=== PATIENT | male | born 1990 | race Caucasian/White ===

== ENCOUNTER 2016-10-20 17:28 | Inpatient (IN) | payer MEDICAID, OTHER ==
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
[2016-10-20 18:26] LABS: % IMMATURE GRANULYOCYTES 0.4 % (0.0-1.1); ABSOLUTE IMMATURE GRANULOCYTES 0.04 10^3/uL (0.00-0.10); ADD DIFF? NO; ADD MORPH? NO; ADD SCAN? NO; ATYPICAL LYMPHOCYTE FLAG 0 (0-99); FRAGMENT RBC FLAG 0 (0-99); HEMATOCRIT 45.8 % (40.0-51.0); HEMOGLOBIN 15.5 g/dL (13.7-17.5); LEFT SHIFT FLG 0 (0-99); LIPEMIA HEMOLYSIS FLAG 90 (0-99); MEAN CELL HEMOGLOBIN 30.1 pg (27.9-34.1); MEAN CELL HEMOGLOBIN CONCENTR. 33.8 g/dL (32.4-36.7); MEAN CELL VOLUME 88.9 fL (81.5-99.8); MEAN PLATELET VOLUME 10.1 fL (8.7-11.7); PLATELET CLUMPS FLAG 0 (0-99); PLATELET COUNT 212 10^3/uL (150-400); RED BLOOD CELL COUNT 5.15 10^6/uL (4.40-6.38); RED CELL DISTRIBUTION WIDTH 12.4 % (11.5-15.2)
[2016-10-20 18:40] LABS: ANION GAP 13 mEq/L (8-16); CALCIUM 9.6 mg/dL (8.5-10.4); CARBON DIOXIDE 23 mEq/l (22-31); CHLORIDE 108 mEq/L (97-110); CREATININE 0.8 mg/dL (0.7-1.3); ETHANOL SERUM < 10 mg/dL (0-10); GLOMERULAR FILTRATION RATE > 60; GLUCOSE 84 mg/dL (70-100); POTASSIUM 4.3 mEq/L (3.5-5.2); SALICYLATE < 1.0 mg/dL (2.0-20.0); SODIUM 144 mEq/L (134-144)
[2016-10-21] MEDS ORDERED: CHLORDIAZEPOXIDE 25MG PREPK#6 BTL TAKEHOME ONE (07:15)
[2016-10-22] MEDS ORDERED: ACETAMINOPHEN 325 MG TAB PO PRN (15:15)
[2016-10-22] MEDS ORDERED: ONDANSETRON 4 MG/2 ML VIAL IVP PRN (15:15)
[2016-10-22] MEDS ORDERED: ONDANSETRON DISINTEGRATING 4 MG TAB PO PRN (15:15)
[2016-10-22] MEDS ORDERED: NICOTINE 21 MG/24 HR PATCH TD PRN (16:27)
[2016-10-22] MEDS ORDERED: NICOTINE POLACRILEX 2 MG GUM B PRN (16:27)
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
[2016-10-22] MEDS ORDERED: LURASIDONE HCL 80 MG TAB PO SCH (17:00)
[2016-10-23] MEDS: ENOXAPARIN 40 MG/0.4 ML SYR SC SCH (09:28)
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
[2016-10-24] MEDS: ENOXAPARIN 40 MG/0.4 ML SYR SC SCH (11:06)
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
[2016-10-25] MEDS: ENOXAPARIN 40 MG/0.4 ML SYR SC SCH (10:59)
[2016-10-26] MEDS: ENOXAPARIN 40 MG/0.4 ML SYR SC SCH (08:32)
--- NOTE | 2016-10-26 20:01 | HOSPPROG ---
Hospitalist Progress Note Assessment/Plan: #Acute agitation: resolved. #Unclear psych disorder: was evaluated by [facility]. Not suicidal. Not on outpatient meds. Will try to discuss meds with [facility] team #Cerebral palsy: PT/OT #Diet: regular #DVT ppx: Lovenox #Disp: warrants inpt admission for placement; case management. Subjective: no acute event Objective: Vital Signs Temp Pulse Resp BP Pulse Ox 36.9 C 61 12 108/59 L 93 10/26/16 15:25 10/26/16 15:25 10/26/16 15:25 10/26/16 15:25 10/26/16 15:25 10/25/16 10/26/16 10/27/16 05:59 05:59 05:59 Intake Total 500 500 Output Total 1275 550 150 Balance -775 -50 -150 - Physical Exam Constitutional: no apparent distress Eyes: PERRL Ears, Nose, Mouth, Throat: moist mucous membranes Cardiovascular: regular rate and rhythym Respiratory: no respiratory distress Gastrointestinal: normoactive bowel sounds, soft, non-tender abdomen Genitourinary: no bladder fullness Skin: warm Neurologic: AAOx3 Psychiatric: depressed (no SI/HI), flat affect ICD10 Worksheet Patient Problems: Problems Problem Status Onset Cerebral palsy Acute Scoliosis Acute
[2016-10-27] MEDS: ENOXAPARIN 40 MG/0.4 ML SYR SC SCH (10:11)
--- NOTE | 2016-10-27 14:39 | HOSPPROG ---
Hospitalist Progress Note Assessment/Plan: #Acute agitation: resolved. #Unclear psych disorder: was evaluated by [facility]. Not suicidal. Not currently on outpatient meds #Cerebral palsy: he is refusing PT #Diet: regular #DVT ppx: Lovenox #Disp: warrants inpt admission for placement; case management assisting Subjective: no complaints Objective: Vital Signs Temp Pulse Resp BP Pulse Ox 37.0 C 55 L 16 93/50 L 90 L 10/26/16 23:15 10/27/16 08:00 10/27/16 08:00 10/27/16 08:00 10/27/16 08:00 10/26/16 10/27/16 10/28/16 05:59 05:59 05:59 Intake Total 500 500 Output Total 550 500 Balance -50 0 - Physical Exam Constitutional: no apparent distress Eyes: PERRL Ears, Nose, Mouth, Throat: moist mucous membranes Cardiovascular: regular rate and rhythym Respiratory: no respiratory distress, no rales or rhonchi Gastrointestinal: normoactive bowel sounds Genitourinary: no bladder fullness Skin: warm Musculoskeletal: full muscle strength Neurologic: AAOx3 Psychiatric: flat affect ICD10 Worksheet Patient Problems: Problems Problem Status Onset Cerebral palsy Acute Scoliosis Acute
[2016-10-27 16:00] LABS: HEMATOCRIT 44.5 % (40.0-51.0); HEMOGLOBIN 15.2 g/dL (13.7-17.5); MEAN CELL HEMOGLOBIN 29.9 pg (27.9-34.1); MEAN CELL HEMOGLOBIN CONCENTR. 34.2 g/dL (32.4-36.7); MEAN CELL VOLUME 87.6 fL (81.5-99.8); RED BLOOD CELL COUNT 5.08 10^6/uL (4.40-6.38); RED CELL DISTRIBUTION WIDTH 12.2 % (11.5-15.2)
[2016-10-27 16:26] LABS: ANION GAP 11 mEq/L (8-16); CALCIUM 9.4 mg/dL (8.5-10.4); CARBON DIOXIDE 23 mEq/l (22-31); CHLORIDE 106 mEq/L (97-110); CREATININE 0.7 mg/dL (0.7-1.3); GLOMERULAR FILTRATION RATE > 60; GLUCOSE 100 mg/dL (70-100); POTASSIUM 3.7 mEq/L (3.5-5.2); SODIUM 140 mEq/L (134-144)
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
[2016-10-28] MEDS: ENOXAPARIN 40 MG/0.4 ML SYR SC SCH (09:54)
[2016-10-29] MEDS: ENOXAPARIN 40 MG/0.4 ML SYR SC SCH (08:55)
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
[2016-10-30] MEDS: ENOXAPARIN 40 MG/0.4 ML SYR SC SCH (11:02)
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
[2016-10-31] MEDS: ENOXAPARIN 40 MG/0.4 ML SYR SC SCH (11:49)
[2016-11-01] MEDS: ENOXAPARIN 40 MG/0.4 ML SYR SC SCH (09:21)
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
[2016-11-02] MEDS: ENOXAPARIN 40 MG/0.4 ML SYR SC SCH (09:28)
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
[2016-11-03] MEDS: ENOXAPARIN 40 MG/0.4 ML SYR SC SCH (09:51)
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
[2016-11-04] MEDS: ENOXAPARIN 40 MG/0.4 ML SYR SC SCH (10:40)
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
[2016-11-05] MEDS: ENOXAPARIN 40 MG/0.4 ML SYR SC SCH (09:25)
--- NOTE | 2016-11-05 11:40 | PDIAF ---
- Diagnosis Diagnosis: agitation Code Status: Full Code - Medication Management Discharge Medications: Medications to Continue on Transfer Acetaminophen [Tylenol 325mg (*)] 650 mg PO Q4HRS PRN #0 tab 11/05/16 [Last Taken Unknown] Nicotine Polacrilex [Nicorette gum (*)] 2 mg B PRN PRN #0 gum 11/05/16 [Last Taken Unknown] Nicotine [Nicoderm Cq 21 mg (*)] 21 mg TD DAILY PRN #0 patch 11/05/16 [Last Taken Unknown] Discharge Medications: Refer to the Discharge Home Medication list for PRN reason. PICC Care - Routine: N/A - Orders Services needed: Registered Nurse, [employer], Physical Therapy, Occupational Therapy Diet Recommendation: no restrictions on diet - Follow Up Care Current Providers and Referrals: NONE *PRIMARY CARE P,. [Primary Care Provider] - As per Instructions
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
[2016-11-05 22:25] VITALS: PULSE 61
[2016-11-06 00:08] VITALS: BP 115/59; RESP 13; TEMP 98.3; O2SAT 96
--- NOTE | 2016-11-06 20:20 | GDS ---
[f rep st] DISCHARGE SUMMARY DISCHARGE DIAGNOSES: Include: 1. Acute agitation/psychiatric decompensation. 2. Chronic cerebral palsy. HISTORY OF PRESENT ILLNESS: A 26-year-old male who is brought to the emergency department with acut e agitation. He is a resident at [facility] in [place], [place]. For details of patient's init ial presentation, please see the history and physical dated 10/23/2016. CONSULTATIONS: Include Psychiatry. PROCEDURES: None. HOSPITAL COURSE: By issue: 1. Acute agitation: Presumed underlying psychiatric disorder. The patient was not acutely suicida l but was actively hallucinating. He was monitored closely at [facility] and treated with both Risperdal a nd Zyprexa. Patient is being transferred to inpatient Psychiatry for ongoing psychiatric care. 2. Chronic cerebral palsy: Patient was refusing therapies during his inpatient stay. Will be disc harged with supportive care only. 3. Tobacco abuse: Patient was discharged nicotine gum. MEDICATIONS AT THE TIME OF TRANSFER: Please reference med rec printed on 11/06/2016. PENDING STUDIES: At time of this dictation, none. FOLLOWUP APPOINTMENTS: Include inpatient Psychiatry on transfer. /[id number]/MODL
== END 2016-11-06 10:25 | DRG 880 ==
LOC: F3N 10-22 15:41 → OBSVTOIN 10-23 11:58 → F3E 10-27 15:29 → F2N 11-05 23:51
PROVIDERS: ADMIT Internal Medicine; ATTEND Hospitalist
DX: F99 Mental disorder, not otherwise specified (principal); R45.1 Restlessness and agitation; R44.3 Hallucinations, unspecified; G80.9 Cerebral palsy, unspecified; F12.20 Cannabis dependence, uncomplicated; F17.210 Nicotine dependence, cigarettes, uncomplicated; M41.9 Scoliosis, unspecified; Z59.0 Homelessness; Z81.8 Family history of other mental and behavioral disorders
CPT/HCPCS: 80305; 97162-GP; 97166-GO; 97530-GO; 97530-GP; 97535-GO; G0378; G0480; J1650

== ENCOUNTER 2016-11-06 10:44 | Inpatient (IN) | payer MEDICAID, OTHER ==
[2016-11-06] MEDS ORDERED: NICOTINE POLACRILEX 2 MG GUM B PRN (12:25)
[2016-11-06] MEDS ORDERED: MAG HYDROX/AL HYDROX/SIMETH 30 ML UDCUP PO PRN (12:25)
[2016-11-06] MEDS ORDERED: OLANZapine DISINTEGR 10 MG TAB PO PRN (12:25)
[2016-11-06] MEDS ORDERED: LORazepam 0.5 MG TAB PO PRN (12:25)
[2016-11-06] MEDS ORDERED: MAGNESIUM HYDROXIDE 30 ML UDCUP PO PRN (12:25)
[2016-11-06] MEDS ORDERED: ACETAMINOPHEN 325 MG TAB PO PRN (12:25)
[2016-11-06] MEDS ORDERED: OLANZapine DISINTEGR 5 MG TAB PO PRN (12:43)
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
[2016-11-06] MEDS: RISPERIDONE 1 MG ODT TAB SL SCH (21:26)
--- NOTE | 2016-11-07 12:38 | SOAPPROG ---
SOAP Progress Note Assessment/Plan: Assessment: 11/07/16 12:29 Plan: 1. Patient refuses all psych meds. He only wants to take "medical marijuana." 2. Will try to obtain collateral records from [facility] and from family in [place]. Patient reports "depression" as adolescent, was on meds but thought they "made it worse." No prior hx of psychotic disorder noted. Suspect low IQ in addition to cerebral palsy. This is addition to heavy and prolonged THC use is likely what has led to paranoia, delusions and disorganized thought process. 3. Will need placement in SNF d/t cerebral palsy. Unclear whether he can return to [facility]. Family may want him placed in facility closer to them in [place]. Subjective: Met with patient and discussed with staff. He refused PO Risperdal last night. Patient is rolling in wheelchair down [place]. MD asks to talk to him and he is pleasant and calm. He has delayed speech and a speech impediment d/t cerebral palsy and possible speech disorder as well. Patient says he moved [place] to [place] to "have a better life for me and my daughter." When MD asks where his daughter is now, he says, "in the waiting room." He says he suffered with depression "as a teenager" and took meds, but didn't like them b/c they "made things worse." He denies ever making a suicide attempt, but says he "thought about it." He denies ever being hospitalized. He denies taking meds at [facility], even though Latuda was listed as an outpatient med when he was in ED. He denies ever experiencing hallucinations except when using drugs. At one point, patient asks , "Have you had a phone call from someone in [facility]?" MD asks patient why he brought that up, patient repeats his question. When MD says "no" patient says, "well that's probably a subliminal message, but you're probably telling the truth." MD asks patient if he would be willing to try medication to help with his thoughts, but he says, "I'm not going to take any meds, I don't need them." And he repeats he only wants marijuana. He does ask for assistance getting "transferred" to another SNF. He denies any SI/HI. Objective: Vital Signs Temp Pulse Resp BP Pulse Ox 36.5 C 59 L 14 99/52 L 92 11/07/16 06:36 11/07/16 06:36 11/07/16 06:36 11/07/16 06:36 11/07/16 06:36 MSE: Wearing green [facility] gown, hair is wet so likely has taken a shower, calm , pleasant. Affect: Euthymic Mood: "OK" TP: Linear and logical except when asks about contacts with "[facility] in [facility]" TC: Denies any AH/VH, but has paranoid delusions, denies any SI/HI Insight/Judgment: Poor - Time Spent With Patient Time Spent With Patient: 25" - Pending Discharge Pending Discharge Within 24 Hours: No ICD10 Worksheet Patient Problems: Problems Problem Status Onset Cannabis use disorder, severe, dependence Acute Psychosis Acute Cerebral palsy Acute Scoliosis Acute - ICD10 Problem Qualifiers (1) Psychosis Qualifiers: Psychosis type: unspecified psychosis type Schizoaffective disorder type: S Schizophrenia type: S Qualified Code(s): F29 - Unspecified psychosis not due to a substance or known physiological condition (2) Cannabis use disorder, severe, dependence
[2016-11-07] MEDS ORDERED: MELATONIN 3 MG TAB PO PRN (12:41)
[2016-11-07] MEDS: RISPERIDONE 1 MG ODT TAB SL SCH (20:34)
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
[2016-11-08] MEDS: RISPERIDONE 1 MG ODT TAB SL SCH (20:18)
--- NOTE | 2016-11-09 13:56 | SOAPPROG ---
SOAP Progress Note Assessment/Plan: Assessment: 1. Cerbral Palsy 2. Schizophrenia Ordering risperidone 1 mg HS Collect collateral information Work on placement issues Plan: Collateral information Continue Risperdal [facility] for dangerousness and Grave Disability Consider petition for COM 11/09/16 13:56 Subjective: "I'm tired of doing it." "Urgently as possible." "I have a request for medical marijuana." Tried to see patient this AM, but he was in bed and did not interact in a meaningful manner. This PM he is awake, but irritable with me. His requests are for marijuana and placement to an LTC facility. He does not want to return to [facility]. He does not want to talk much. When I ask him to tell me his story h tells me, "They have certified correct documentation." Objective: Vital Signs Temp Pulse Resp BP Pulse Ox 36.4 C 84 14 106/57 L 94 11/08/16 06:00 11/08/16 06:00 11/08/16 06:00 11/08/16 06:00 11/08/16 06:00 Medications Generic Name Dose Route Start Last Admin Trade Name Freq PRN Reason Stop Dose Admin Risperidone 1 mg 11/06/16 21:00 11/08/16 20:18 Risperdal-M SL 05/05/17 20:59 Not Given HS LAM MSE Up and in wheelchair. Wearing a hospital gown. Speech is pressured but not rapid. Mood/Affect are incongruent. Self report of mood is normal but Mr. Harris is quite irritable today. Denies internal stimuli and does not appear to respond to internal stimuli. Lacks insight and judgment. ICD10 Worksheet Patient Problems: Problems Problem Status Onset Cannabis use disorder, severe, dependence Acute Psychosis Acute Cerebral palsy Acute Scoliosis Acute
[2016-11-09] MEDS: RISPERIDONE 1 MG ODT TAB SL SCH (21:17)
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
[2016-11-10] MEDS: risperiDONE 1 MG TAB PO SCH ×2 (20:01→20:03)
[2016-11-11] MEDS ORDERED: LORazepam 2 MG/ML INJ IM PRN (11:09)
[2016-11-11] MEDS ORDERED: LORazepam 1 MG TAB PO PRN ×2 (11:09→11:18)
[2016-11-11] MEDS ORDERED: OLANZapine 10 MG/2 ML VIAL IM PRN (11:09)
[2016-11-11] MEDS ORDERED: OLANZapine DISINTEGR 10 MG TAB PO SCH ×2 (11:15→21:00)
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
[2016-11-11] MEDS: OLANZapine DISINTEGR 10 MG TAB PO SCH ×2 (11:59→20:48)
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
[2016-11-12] MEDS: OLANZapine DISINTEGR 10 MG TAB PO SCH (10:04)
--- NOTE | 2016-11-12 13:41 | SOAPPROG ---
SOAP Progress Note Assessment/Plan: Assessment: 1. Cerbral Palsy 2. Schizophrenia Continued irritability, anger, profanity, and aggression today. Significant sedation with olanzapine 10 mg, try 5 mg HS. Plan: He is verbally aggressive, yelling, profane and threatening today. ReStarting Emergency [employer]. COM petition done (dictation [id number]) [facility] for dangerousness and Grave Disability done. 11/12/16 13:43 Subjective: "What is it?" "What is the whole situation?" "What is the issue on my case?" Uncooperative, yelling and profane. Angry and unable to participate in any conversation. Received Emergency medications yesterday. Will renew today. Mr. Harris remains irritable and imminently dangerous. Mr. Harris was very sedated by 10 mg olanzapine, will try a lower dose at HS only today. Objective: Vital Signs Temp Pulse Resp BP Pulse Ox 36.4 C 60 13 104/53 L 94 11/12/16 08:33 11/12/16 08:33 11/12/16 08:33 11/12/16 08:33 11/12/16 08:33 Medications Generic Name Dose Route Start Last Admin Trade Name Freq PRN Reason Stop Dose Admin Olanzapine 10 mg 11/11/16 11:45 11/12/16 10:04 Zyprexa Zydis PO 05/10/17 11:44 Not Given BID LAM MSE Awake, poor grooming, hair unkempt and dirty, wearing hospital gown only. Appears angry, yelling, cursing, balled fists and thrusting of hands. Declines to discuss his mood. Appears to respond to internal stimuli at times. Lacks insight and judgment. ICD10 Worksheet Patient Problems: Problems Problem Status Onset Cannabis use disorder, severe, dependence Acute Psychosis Acute Cerebral palsy Acute Scoliosis Acute
[2016-11-12] MEDS ORDERED: OLANZapine 10 MG/2 ML VIAL IM PRN (13:45)
[2016-11-12] MEDS ORDERED: LORazepam 0.5 MG TAB PO PRN (13:47)
[2016-11-12] MEDS ORDERED: OLANZapine DISINTEGR 5 MG TAB PO SCH (21:00)
[2016-11-13] MEDS ORDERED: LORazepam 0.5 MG TAB PO PRN (01:21)
[2016-11-13] MEDS ORDERED: LORazepam 2 MG/ML INJ IM PRN ×2 (01:21→15:11)
[2016-11-13] MEDS ORDERED: LORazepam 1 MG TAB PO PRN (11:00)
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
[2016-11-13] MEDS ORDERED: OLANZapine 10 MG/2 ML VIAL IM PRN (15:08)
[2016-11-13] MEDS ORDERED: MELATONIN 3 MG TAB PO PRN (15:12)
[2016-11-13] MEDS ORDERED: OLANZapine DISINTEGR 5 MG TAB PO SCH (21:00)
[2016-11-14] MEDS: OLANZapine DISINTEGR 5 MG TAB PO SCH (20:31)
--- NOTE | 2016-11-15 12:12 | SOAPPROG ---
SOAP Progress Note Assessment/Plan: Assessment: 1. Cerbral Palsy 2. Schizophrenia Continued irritability, anger, and aggression today. Less profanity. Continue olanzapine 5 mg HS. Plan: STC and COM petition done. Taking olanzapine 5 mg QHS. Will continue and consider increasing in 2.5 mg increments. 11/15/16 12:12 Subjective: "Are you stupid?" "I'm doing fine." "Did you get the word. Did you get the notification." Slept 5 hours plus. Has significant sleep phase delay. Mr. Harris is requesting placement at a LTC facility. This appears to be his only concern. He wants to make sure he can use his "medical marijuana" wherever he lives. Objective: Vital Signs Temp Pulse Resp BP Pulse Ox 36.4 C 60 13 104/53 L 94 11/12/16 08:33 11/12/16 08:33 11/12/16 08:33 11/12/16 08:33 11/12/16 08:33 Medications Generic Name Dose Route Start Last Admin Trade Name Mikeyq PRN Reason Stop Dose Admin Olanzapine 5 mg 11/14/16 21:00 11/14/16 20:31 Zyprexa Zydis PO 05/13/17 20:59 5 mg HS LAM MSE Awake, alert, hair unwashed, in wheelchair, malodorous uncooperative and unpleasant with me today. Not forthcoming about thoughts or mood state. Speech is pressured, loud, and profane. Lacks insight. Lacks judgment. ICD10 Worksheet Patient Problems: Problems Problem Status Onset Cannabis use disorder, severe, dependence Acute Psychosis Acute Cerebral palsy Acute Scoliosis Acute
[2016-11-15] MEDS: OLANZapine DISINTEGR 5 MG TAB PO SCH (19:34)
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
--- NOTE | 2016-11-16 10:42 | SOAPPROG ---
SOAP Progress Note Assessment/Plan: Assessment: 1. Cerbral Palsy 2. Schizophrenia Decreased irritability, decreased lability. Slowly improving. Continue olanzapine 5 mg HS. Plan: STC and COM petition done. Taking olanzapine 5 mg QHS. Will continue and consider increasing in 2.5 mg increments. PT evaluation to use a Walker. 11/16/16 10:48 Subjective: "I'm anxious about the case." Mr. Harris slept 5.5 hours last night per nursing report. He is up earlier today than yesterday. He tells me his energy is good today. He requests placement at an LTC where he can smoke marijuana. I recommend he attend groups and cooperate with the nursing staff so we can give a good report to the LTC facilities. His care rep is making applications. I also understand that Mr Harris uses a Walker at his LTC facility. I have entered a request for PT to evaluate and see if he can use a walker here as well. Objective: Vital Signs Temp Pulse Resp BP Pulse Ox 36.4 C 60 13 104/53 L 94 11/12/16 08:33 11/12/16 08:33 11/12/16 08:33 11/12/16 08:33 11/12/16 08:33 Medications Generic Name Dose Route Start Last Admin Trade Name Freq PRN Reason Stop Dose Admin Olanzapine 5 mg 11/14/16 21:00 11/15/16 19:34 Zyprexa Zydis PO 05/13/17 20:59 5 mg HS LAM MSE: Awake, alert, grooming better today. Hair is washed and combed. Not malodorous, more appropriately dressed. Minimally cooperative with interview, but no yelling nor cursing today. Mood normal with congruent affect, reasonable range of affect Thought processes more linear and simple. Only topic of conversations for him are medical marijuana and LTC placement. Lacks insight. Lacks judgment. ICD10 Worksheet Patient Problems: Problems Problem Status Onset Cannabis use disorder, severe, dependence Acute Psychosis Acute Cerebral palsy Acute Scoliosis Acute
[2016-11-16] MEDS: OLANZapine DISINTEGR 5 MG TAB PO SCH (19:21)
--- NOTE | 2016-11-17 13:48 | SOAPPROG ---
SOAP Progress Note Assessment/Plan: Assessment: 1. Cerbral Palsy 2. Schizophrenia Decreased irritability, decreased lability. Slowly improving. Increase olanzapine to 7.5 mg HS. Plan: STC and COM petition done. Taking olanzapine 5 mg QHS. Increase olanzapine to 7.5 mg HS. PT evaluation to use a Walker. 11/17/16 13:52 Subjective: "Do you want an audience to clap?" "Every day here is mental and emotional exhaustion." "Can you treat it as an urgent situation?" Slept 6.5 hours last night. Irritable with me today. Seeking discharge to an LTC , but we have not found a placement for him. Asks about going to a Skilled Nursing today. There are few shelters open in the summer. Staff report Mr. Harris continues to appear to respond to internal stimuli at times. Objective: Vital Signs Temp Pulse Resp BP Pulse Ox 36.8 C 87 15 118/82 H 91 L 11/17/16 06:00 11/17/16 06:00 11/17/16 06:00 11/17/16 06:00 11/17/16 06:00 Medications Generic Name Dose Route Start Last Admin Trade Name Freq PRN Reason Stop Dose Admin Olanzapine 5 mg 11/14/16 21:00 11/16/16 19:21 Zyprexa Zydis PO 05/13/17 20:59 5 mg HS LAM MSE Up in wheelchair. Hair clean. Grooming fair Speech comes out in pressured, irritable bursts. Thought processes simple and disorganized. Does not want to discuss anything except placement. Thought content reveals paranoia about medications. Lacks insight/judgment. ICD10 Worksheet Patient Problems: Problems Problem Status Onset Cannabis use disorder, severe, dependence Acute Psychosis Acute Cerebral palsy Acute Scoliosis Acute
[2016-11-17] MEDS: OLANZapine DISINTEGR 5 MG TAB PO SCH (20:27)
[2016-11-18] MEDS ORDERED: TUBERCULIN (PPD) 5 TU/0.1 ML SYRINGE ID ONE (11:55)
--- NOTE | 2016-11-18 14:26 | BLETTER ---
November 18, 2016 RE: Prescription for wheelchair. To Whom It May Concern: Mr. Srini Harris, has cerebral palsy. Because of his cerebral palsy, he has poor coordination and is unable to walk. He is confined to a wheelchair , and we are requesting a wheelchair for him. Respectfully yours, LUCITA
--- NOTE | 2016-11-18 15:05 | SOAPPROG ---
SOAP Progress Note Assessment/Plan: Assessment: 1. Cerbral Palsy Can not use a walker without leg/ankle braces. Rx and letter done ordering wheelchair. 2. Schizophrenia Decreased irritability, decreased lability. Slowly improving. Continue olanzapine to 7.5 mg HS. Plan: STC and COM petition done. 11/18/16 15:06 Subjective: "I already accomplished that." Reports sleep was fine. More cooperative, but still has an irritable edge with me. buildings and grounds coordinator has learned that Mr. Harris has some services through his family' s [employer]. They will try to access these services. We are ordering a wheelchair. Denies medication side effects. Objective: Vital Signs Temp Pulse Resp BP Pulse Ox 36.8 C 87 15 118/82 H 91 L 11/17/16 06:00 11/17/16 06:00 11/17/16 06:00 11/17/16 06:00 11/17/16 06:00 Medications Generic Name Dose Route Start Last Admin Trade Name Freq PRN Reason Stop Dose Admin Olanzapine 7.5 mg 11/17/16 13:53 11/17/16 20:27 Zyprexa Zydis PO 05/13/17 20:59 7.5 mg HS LAM MSE Awake, alert, minimally cooperative with me presents with an irritable affect, but not yelling, not cursing, appears to be improving [place] thoughts, thought processes linear, does not appear to respond to internal stimuli today lacks insight, lacks judgment ICD10 Worksheet Patient Problems: Problems Problem Status Onset Cannabis use disorder, severe, dependence Acute Psychosis Acute Cerebral palsy Acute Scoliosis Acute
[2016-11-18] MEDS: OLANZapine DISINTEGR 5 MG TAB PO SCH (18:53)
[2016-11-19] MEDS ORDERED: OLANZapine 10 MG/2 ML VIAL IM PRN ×2 (10:46)
[2016-11-19] MEDS ORDERED: OLANZapine DISINTEGR 10 MG TAB PO PRN (10:46)
--- NOTE | 2016-11-19 10:53 | SOAPPROG ---
SOAP Progress Note Assessment/Plan: Assessment: 1. Cerbral Palsy Can not use a walker without leg/ankle braces. Rx and letter done ordering wheelchair. 2. Schizophrenia Increased irritability and aggressiveness today which appears to be secondary to an increase of paranoia, though Mr. Harris is not forthcoming during interview today. Plan: Emergency medications today for dangerousness to others. olanzapine 5 mg prn and [address] [facility] and COM petition done. 11/19/16 10:56 Subjective: "What's the real situation?" "What, are you ill?" "What do you need, sir?" Slept 8 hours per records last night. With me Mr. Harris is loud, yelling, profane, and accusatory. He appears to have some paranoia about talking to me today but can not say what is wrong. He took a shower today, with help from staff. I saw him after his shower and he became paranoid, seeming to think there is some underlying or "real situation." However he will not explain what he means by this. I ask, and he begins yelling and becomes aggressive and profane. Objective: Vital Signs Temp Pulse Resp BP Pulse Ox 36.8 C 87 15 118/82 H 91 L 11/17/16 06:00 11/17/16 06:00 11/17/16 06:00 11/17/16 06:00 11/17/16 06:00 Medications Discontinued Medications Generic Name Dose Route Start Last Admin Trade Name Freq PRN Reason Stop Dose Admin Olanzapine 7.5 mg 11/17/16 13:53 11/18/16 18:53 Zyprexa Zydis PO 05/13/17 20:59 7.5 mg [facility] MSE Awake, alert, sitting in wheelchair. Still wet from recent shower, and dressing in hospital gown. Speech is loud, profane, yelling Thought content contains paranoia. He will not clarify but seems to think there is something going on here other than being in a [facility]. Thought processes simple and concrete Lacks insight and judgment ICD10 Worksheet Patient Problems: Problems Problem Status Onset Cannabis use disorder, severe, dependence Acute Psychosis Acute Cerebral palsy Acute Scoliosis Acute
[2016-11-19] MEDS ORDERED: OLANZapine DISINTEGR 10 MG TAB PO SCH (21:00)
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
[2016-11-20] MEDS ORDERED: OLANZapine 10 MG/2 ML VIAL IM PRN (13:25)
[2016-11-20] MEDS ORDERED: LORazepam 2 MG/ML INJ IM PRN (13:25)
[2016-11-20] MEDS: LORazepam 1 MG TAB PO SCH (20:57)
[2016-11-20] MEDS ORDERED: OLANZapine DISINTEGR 10 MG TAB PO SCH (21:00)
[2016-11-21] MEDS: LORazepam 1 MG TAB PO SCH ×2 (10:09→20:30)
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
[2016-11-21] MEDS ORDERED: OLANZapine 10 MG/2 ML VIAL IM PRN (16:06)
[2016-11-21] MEDS ORDERED: LORazepam 2 MG/ML INJ IM PRN (16:06)
[2016-11-21] MEDS ORDERED: OLANZapine DISINTEGR 10 MG TAB PO SCH (21:00)
[2016-11-22] MEDS: LORazepam 1 MG TAB PO SCH (09:41)
--- NOTE | 2016-11-22 14:58 | SOAPPROG ---
SOAP Progress Note Assessment/Plan: Assessment: Plan: 11/22/16 14:59 Calmer, though remains disorganized. Will CCM. Subjective: Pt seen, discussed with staff. Calls me over to talk to him in dining room. He speaks in a very soft voice that is hard to hear. He is also disorganized, unable to adequately express himself. He asks, "What is the plan for my care?" at one point. I explain that we are tying to find a placement for him. He is compliant with meds. No aggression for several days. Objective: Vital Signs Temp Pulse Resp BP Pulse Ox 36.8 C 87 15 118/82 H 91 L 11/17/16 06:00 11/17/16 06:00 11/17/16 06:00 11/17/16 06:00 11/17/16 06:00 MSE: Poorly groomed, malodorous. Affect is blunted, stable. Mood is "OK." TP disorganized. TC reveals possible paranoia. 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
--- NOTE | 2016-11-23 16:52 | SOAPPROG ---
SOAP Progress Note Assessment/Plan: Assessment: Plan: 11/22/16 14:59 Calmer, though remains disorganized. Will CCM. 11/23/16 16:52 No change. CCM. Subjective: Pt seen, discussed with staff. REports feeling "just fine". Asks how I am. States he wants to go to [place] to visit his GM. Worried that it may "mess up what we're doing here." Has been calm and compliant with treatment. Offers no c/o' s. RN concerned about possible perineal skin irritation. Will evaluate. Objective: Vital Signs Temp Pulse Resp BP Pulse Ox 36.8 C 87 15 118/82 H 91 L 11/17/16 06:00 11/17/16 06:00 11/17/16 06:00 11/17/16 06:00 11/17/16 06:00 MSE: Calm, coop. Affect is blunted, stable. Mood is "fine." TP generally linear. TC reveals some paranoia. I/J remains marginal. Denies SI/HI/. 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
--- NOTE | 2016-11-24 14:19 | SOAPPROG ---
SOAP Progress Note Assessment/Plan: Assessment: Plan: 11/22/16 14:59 Calmer, though remains disorganized. Will CCM. 11/23/16 16:52 No change. CCM. 11/24/16 14:19 Calmer today. CCM. Subjective: Pt seen, discussed with staff. Reports feeling "anxious" about d/c. Perseverates on wanting to leave the hospital and go to [place], but "not mess up the plans here." Also requests his ankle braces, walker and wheel chair. Has been behaviorally stable. Continues to refuse meds. Objective: Vital Signs Temp Pulse Resp BP Pulse Ox 36.8 C 87 15 118/82 H 91 L 11/17/16 06:00 11/17/16 06:00 11/17/16 06:00 11/17/16 06:00 11/17/16 06:00 MSE; Calm, coop. Affect is blunted, stable, approp. Mood is "OK, anxious." TP generally linear. TC reveals some unrealistic thoughts, poor reality testing. 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
--- NOTE | 2016-11-24 20:33 | WOCRNPDOC ---
WOCRN Advanced Assessment Note - Skin Integrity Problem, Advanced Assess Coccyx Pressure Injury Dressing Type: Open to Air Site Measurement - Head-to-Toe Length X Width X Depth (cm): 1.3x0.5x0 Pressure Injury Stage: Stage 1 Skin Integrity Problem Comment: Patient with previous breakdown in area as evidenced by mutliple scars. Currently coccyx is intact but non blanching. There is a small partial thickness wound (0.5x0.5xscab) that is due to friction on the right buttock. Patient had a pillow as padding on the wheelchair. Wound care recommends changing to air cushion while the patient is using the hospital wheelchair. When patient gets a private wheelchair patient wound care recommends that patient be fitted for a custom/offloading cushion to prevent further pressure injuries/skin breakdown. In the meanwhile encourage patient to offload and reposition in wheelchair every hour. Discussed plan of care with Leti BLAKE. Wound care will sign off at this time. Please reconsult prn.
[2016-11-25] MEDS: risperiDONE 0.5 MG TAB PO SCH ×2 (13:18→20:10)
--- NOTE | 2016-11-25 16:32 | SOAPPROG ---
SOAP Progress Note Assessment/Plan: Assessment: Plan: 11/22/16 14:59 Calmer, though remains disorganized. Will CCM. 11/23/16 16:52 No change. CCM. 11/24/16 14:19 Calmer today. CCM. 11/25/16 16:33 Remains cooperative. Psychosis has largely abated, may indicate that it was primarily induced by the cannabis. Will start Risperdal 0.5mg, monitor. Drop STC and convert to voluntary status. Subjective: Pt seen, discussed with staff. I reviewed at length with him the current treatment plan including medications. He reports no current AH's "that I am aware of." Agreeable to trying low-dose Risperdal and converting to voluntary status. He has been calm and cooperative for a week now with no outbursts. Appreciate wound care input. 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
--- NOTE | 2016-11-26 11:41 | SOAPPROG ---
SOAP Progress Note Assessment/Plan: Assessment: Plan: 11/22/16 14:59 Calmer, though remains disorganized. Will CCM. 11/23/16 16:52 No change. CCM. 11/24/16 14:19 Calmer today. CCM. 11/25/16 16:33 Remains cooperative. Psychosis has largely abated, may indicate that it was primarily induced by the cannabis. Will start Risperdal 0.5mg, monitor. Drop STC and convert to voluntary status. 11/26/16 11:40 Compliant with treatment. Psychosis continues. CCM. Subjective: Pt continues to require wheelchair. Unable to ambulate or transfer independently. Skin breakdown being addressed per wound care. Noted by staff to continue to attend to internal stimuli. Compliant with Risperdal. Objective: Vital Signs Temp Pulse Resp BP Pulse Ox 36.4 C 66 12 108/56 L 93 11/25/16 06:47 11/26/16 06:00 11/26/16 06:00 11/26/16 06:00 11/26/16 06:00 MSE: Calm, coop. Affect is constricted, stable. Mood is "OK." TP generally linear. TC reveals RIS. 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
[2016-11-26] MEDS: risperiDONE 0.5 MG TAB PO SCH (20:16)
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
[2016-11-27] MEDS: risperiDONE 0.5 MG TAB PO SCH (20:27)
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
[2016-11-28] MEDS: risperiDONE 0.5 MG TAB PO SCH (20:55)
--- NOTE | 2016-11-29 11:28 | SOAPPROG ---
SOAP Progress Note Assessment/Plan: Assessment: Plan: 11/22/16 14:59 Calmer, though remains disorganized. Will CCM. 11/23/16 16:52 No change. CCM. 11/24/16 14:19 Calmer today. CCM. 11/25/16 16:33 Remains cooperative. Psychosis has largely abated, may indicate that it was primarily induced by the cannabis. Will start Risperdal 0.5mg, monitor. Drop STC and convert to voluntary status. 11/26/16 11:40 Compliant with treatment. Psychosis continues. CCM. 11/29/16 11:29 Brighter today. Remains compliant. CCM. Subjective: Pt seen, discussed with staff. Pleasant and interactive with me today. Smiling frequently. Continues to ask about wheelchair. CC in contact with [employer] to get this. Pt talks a lot about the government trying to kill him "because of what I invented." He states he has created his own government called "[employer]" which stands for [employer]. He states, "I have a way to communicate with them so when you see me talking to myself that's what I'm doing." Remains compliant with meds. Objective: Vital Signs Temp Pulse Resp BP Pulse Ox 36.4 C 66 12 108/56 L 93 11/25/16 06:47 11/26/16 06:00 11/26/16 06:00 11/26/16 06:00 11/26/16 06:00 MSE: Calm, coop. Affect is bright, smiling frequently. Mood is "good." TP linear. TC reveals persecutory delusions, IOR's and AH's. 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
[2016-11-29] MEDS: risperiDONE 0.5 MG TAB PO SCH (20:59)
--- NOTE | 2016-11-30 16:21 | SOAPPROG ---
SOAP Progress Note Assessment/Plan: Assessment: Plan: 11/22/16 14:59 Calmer, though remains disorganized. Will [facility]. 11/23/16 16:52 No change. CCM. 11/24/16 14:19 Calmer today. CCM. 11/25/16 16:33 Remains cooperative. Psychosis has largely abated, may indicate that it was primarily induced by the cannabis. Will start Risperdal 0.5mg, monitor. Drop STC and convert to voluntary status. 11/26/16 11:40 Compliant with treatment. Psychosis continues. CCM. 11/29/16 11:29 Brighter today. Remains compliant. CCM. 11/30/16 16:19 Improved overall. CCM. Will titrate Risperdal to 1mg. Subjective: Pt seen, discussed with staff. REports feeling "fine." Smells strongly of urine. Grooming is otherwise marginal. He is interactive and appropriate with no mention of delusions. He is agreeable to going to his grandmother's, but cannot problem solve a plan for this. Objective: Vital Signs Temp Pulse Resp BP Pulse Ox 36.4 C 66 12 108/56 L 93 11/25/16 06:47 11/26/16 06:00 11/26/16 06:00 11/26/16 06:00 11/26/16 06:00 MSE: Poorly groomed, smells strongly of urine. Affect is blunted, stable, approp. Mood is "fine." TP generally linear. TC reveals no mention of delusional systems. Denies hearing voices or "communicating with my government. 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
[2016-11-30] MEDS: risperiDONE 0.5 MG TAB PO SCH (21:21)
[2016-12-01] MEDS: risperiDONE 0.5 MG TAB PO SCH (21:11)
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
--- NOTE | 2016-12-02 16:30 | SOAPPROG ---
SOAP Progress Note Assessment/Plan: Assessment: Plan: 11/22/16 14:59 Calmer, though remains disorganized. Will CCM. 11/23/16 16:52 No change. CCM. 11/24/16 14:19 Calmer today. CCM. 11/25/16 16:33 Remains cooperative. Psychosis has largely abated, may indicate that it was primarily induced by the cannabis. Will start Risperdal 0.5mg, monitor. Drop STC and convert to voluntary status. 11/26/16 11:40 Compliant with treatment. Psychosis continues. CCM. 11/29/16 11:29 Brighter today. Remains compliant. CCM. 11/30/16 16:19 Improved overall. CCM. Will titrate Risperdal to 1mg. 12/02/16 16:29 Continued improvement. CCM. Subjective: Pt seen, discussed with staff. Reports feeling "just fine." Well groomed and interactive this morning. Discussed d/c planning. CC continues to try to arrange transportation to [place]. Objective: Vital Signs Temp Pulse Resp BP Pulse Ox 36.2 C 71 16 109/69 94 12/01/16 23:53 12/01/16 23:53 12/01/16 23:53 12/01/16 23:53 12/01/16 23:53 MSE: Calm, coop. Affect is blunted, stable. Mood is "fine." TP linear. TC reveals continued AH's, grandiose and persecutory thoughts. 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
[2016-12-02] MEDS: risperiDONE 0.5 MG TAB PO SCH (21:42)
--- NOTE | 2016-12-03 13:40 | SOAPPROG ---
SOAP Progress Note Assessment/Plan: Assessment: Plan: 11/22/16 14:59 Calmer, though remains disorganized. Will CCM. 11/23/16 16:52 No change. CCM. 11/24/16 14:19 Calmer today. CCM. 11/25/16 16:33 Remains cooperative. Psychosis has largely abated, may indicate that it was primarily induced by the cannabis. Will start Risperdal 0.5mg, monitor. Drop STC and convert to voluntary status. 11/26/16 11:40 Compliant with treatment. Psychosis continues. CCM. 11/29/16 11:29 Brighter today. Remains compliant. CCM. 11/30/16 16:19 Improved overall. CCM. Will titrate Risperdal to 1mg. 12/02/16 16:29 Continued improvement. [facility]. 12/03/16 13:41 More obvious psychosis today. Will titrate Risperdal to 2mg, monitor. Subjective: Pt seen, discussed with staff. Reports feeling "pretty good." Sitting quietly in day room. Agreeable d/c plan to return to his 's. Got WC and is pleased with this. Noted to be frequently talking to himself/attending to IS. Compliant with meds. Objective: Vital Signs Temp Pulse Resp BP Pulse Ox 36.2 C 84 14 131/71 H 94 12/01/16 23:53 12/03/16 06:00 12/03/16 06:00 12/03/16 06:00 12/03/16 06:00 MSE: Calm, coop, though guarded. Speech is low, slow. Affect is blunted, stable. Mood is "OK." TP linear for brief periods, but make several statements that are difficult to understand. TC reveals familiar delusional systems, RIS. 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
[2016-12-03] MEDS: risperiDONE 0.5 MG TAB PO SCH (19:38)
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
[2016-12-04] MEDS: risperiDONE 0.5 MG TAB PO SCH (22:11)
[2016-12-05 02:10] VITALS: RESP 16; O2SAT 94
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
[2016-12-05] MEDS: risperiDONE 0.5 MG TAB PO SCH (21:20)
--- NOTE | 2016-12-06 13:44 | SOAPPROG ---
SOAP Progress Note Assessment/Plan: Assessment: Plan: 11/22/16 14:59 Calmer, though remains disorganized. Will CCM. 11/23/16 16:52 No change. CCM. 11/24/16 14:19 Calmer today. CCM. 11/25/16 16:33 Remains cooperative. Psychosis has largely abated, may indicate that it was primarily induced by the cannabis. Will start Risperdal 0.5mg, monitor. Drop STC and convert to voluntary status. 11/26/16 11:40 Compliant with treatment. Psychosis continues. CCM. 11/29/16 11:29 Brighter today. Remains compliant. CCM. 11/30/16 16:19 Improved overall. CCM. Will titrate Risperdal to 1mg. 12/02/16 16:29 Continued improvement. CCM. 12/03/16 13:41 More obvious psychosis today. Will titrate Risperdal to 2mg, monitor. 12/06/16 13:45 Plan is for pt to leave with GM tomorrow or Weds. I will not allow him to leave prior to that as he is not able to manage himself and has not means of support inc: no money, no ID and no place to stay. Subjective: Pt seen, discussed with staff. He continues to ask if he can leave the hospital of his own accord prior to his GM arriving. He states he is "very upset" that she is coming and "needs some time to get ready to leave." He clearly wants to go out and buy MJ prior to leaving [place]. He is unhappy that he won't have time to do this if his GM picks him up. I told him that I would not allow him to go out of the hospital in his wheelchair of his own accord without a solid d/c plan. He states he has one, but doesn't want anyone to know what it is. He states, "I have lots of places to stay." Cannot name any specific supports. Objective: Vital Signs Temp Pulse Resp BP Pulse Ox 36.4 C 76 16 121/77 H 94 12/05/16 02:09 12/05/16 02:09 12/05/16 02:09 12/05/16 02:09 12/05/16 02:09 MSE: Poorly groomed, smells strongly of urine. Affect is constricted, irritable at times with some inappropriate smiling that seems to correspond with RIS. Mood is "really upset." TP disorganized at times. TC reveals paranoid and grandiose delusions, AH's/RIS. 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
[2016-12-06] MEDS: risperiDONE 0.5 MG TAB PO SCH (22:08)
[2016-12-07 07:01] VITALS: BP 111/59; PULSE 74; TEMP 97.9
--- NOTE | 2016-12-07 16:31 | SOAPPROG ---
SOAP Progress Note Assessment/Plan: Assessment: Plan: 11/22/16 14:59 Calmer, though remains disorganized. Will CCM. 11/23/16 16:52 No change. CCM. 11/24/16 14:19 Calmer today. CCM. 11/25/16 16:33 Remains cooperative. Psychosis has largely abated, may indicate that it was primarily induced by the cannabis. Will start Risperdal 0.5mg, monitor. Drop STC and convert to voluntary status. 11/26/16 11:40 Compliant with treatment. Psychosis continues. CCM. 11/29/16 11:29 Brighter today. Remains compliant. CCM. 11/30/16 16:19 Improved overall. CCM. Will titrate Risperdal to 1mg. 12/02/16 16:29 Continued improvement. CCM. 12/03/16 13:41 More obvious psychosis today. Will titrate Risperdal to 2mg, monitor. 12/06/16 13:45 Plan is for pt to leave with GM tomorrow or Weds. I will not allow him to leave prior to that as he is not able to manage himself and has not means of support inc: no money, no ID and no place to stay. 12/07/16 16:30 No change. CCM. Likely d/c tomorrow. Subjective: Pt seen, discussed with staff. Remains irritable on subject of d/c. Continues to want to be allowed to go out on the streets prior to his GM arriving tomorrow. He becomes angry when confronted that he wants to seek drugs. He cannot reason that he doesn't have an ID to buy at a dispensary and doesn't have money to buy off the street. Plan is o/w coming into place. GM is scheduled to arrive tonight and pt should go with her back to [place] tomorrow. 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
[2016-12-07] MEDS: risperiDONE 0.5 MG TAB PO SCH (20:00)
== END 2016-12-08 12:05 | disposition home or self-care (01) | DRG 885 ==
LOC: BBEH 10:44
PROVIDERS: ADMIT Internal Medicine Endocrinology, Diabetes & Metabolism; ATTEND Internal Medicine Endocrinology, Diabetes & Metabolism
DX: F29 Unspecified psychosis not due to a substance or known physiological condition (principal); F12.20 Cannabis dependence, uncomplicated; G80.9 Cerebral palsy, unspecified; Z72.89 Other problems related to lifestyle; Z59.0 Homelessness